=== PATIENT | male | born 1940 | race Caucasian/White ===

== ENCOUNTER → 2016-05-17 | Outpatient (CLI) | payer MEDICARE, BC ==
--- NOTE | 2016-05-20 11:27 | EKG ---
[facility] [address] [place] [address] Test Date: 2016-05-20 Test Time: 09:25:55 Pat Name: CLINTON HOWARD Department: Room: Gender: M Account Assistant: : [id number] Requested By: ANITHA MORA Order Number: [id number] Reading MD: Interpretive Statements
== END | disposition home or self-care (01) ==
LOC: EKG 09:55
PROVIDERS: ATTEND Internal Medicine Cardiovascular Disease
DX: I47.1 Supraventricular tachycardia (principal); I47.2 Ventricular tachycardia
CPT/HCPCS: 93225